=== PATIENT | female | born 1950 | race American Indian/Alaskan Native ===

== ENCOUNTER 2022-02-14 00:10 | Emergency (ER) | payer BC ==
[2022-02-14 01:50] LABS: Hyaline Casts,Urine 1 /LPF; Mucus,Urine FEW /HPF; RBC,Urine < 1.0 /HPF (0.0-6.0); WBC,Urine < 1.0 /HPF (0.0-6.0)
[2022-02-14 01:51] LABS: Color,Urine Yellow (Yellow)
--- NOTE | 2022-02-14 01:58 | Cat Scan Report ---
CT HEAD WITHOUT CONTRAST INDICATION / CLINICAL INFORMATION: fall 2 days ago, head trauma, c/o headache. TECHNIQUE: CT head was performed without administration of intravenous contrast. All CT scans at this location are performed using CT dose reduction for ALARA by means of automated exposure control. COMPARISON: None available. FINDINGS: CEREBRAL HEMISPHERES: There is no evidence of large territorial infarction or significant abnormality of ram-white matter differentiation. Ventricles within normal limits. No midline shift. Basal ciste rns patent. HEMORRHAGE: None. CEREBELLUM / BRAINSTEM: No significant abnormality. ORBITS: No significant abnormality. SOFT TISSUES: No significant abnormality. SKULL: No significant abnormality. PARANASAL SINUSES / MASTOID AIR CELLS: Normal as visualized. ADDITIONAL FINDINGS: None. IMPRESSION: 1. No acute intracranial abnormality. Signer Name: Troy Gibbs II, MD Signed: 02/14/2022 1:54 AM Workstation Name: [id number]
--- NOTE | 2022-02-14 02:03 | Cat Scan Report ---
CT CERVICAL SPINE WITHOUT CONTRAST INDICATION / CLINICAL INFORMATION: fall 2 days ago, head/posterior neck pain. TECHNIQUE: Axial CT images were obtained through the cervical spine. Sagittal and coronal reformatted images were produced. All CT scans at this location are performed using CT dose reduction for ALARA by means of automated exposure control. COMPARISON: None available. FINDINGS: MANDIBLE: No significant abnormality of the visualized mandible or TMJs. SKULL BASE: No significant abnormality of the skull base. CRANIOCERVICAL JUNCTION: No significant abnormality of the craniocervical junction. CERVICAL SPINE: Normal alignment. Moderate loss of intervertebral disc space throughout the cervical spine with fusion of C4-5. Partially calcified pannus posterior to the tip of the dens. No acute cerv ical spine fracture. SOFT TISSUES: No significant abnormality of soft tissues or musculature. THYROID: No significant abnormality. UPPER CHEST: No significant abnormality of the visualized chest. ADDITIONAL FINDINGS: None. IMPRESSION: 1. No evidence of acute osseous injury. Signer Name: Troy Gibbs II, MD Signed: 02/14/2022 1:59 AM Workstation Name: [id number]
--- NOTE | 2022-02-14 02:09 | Cat Scan Report ---
CT PELVIS WITHOUT CONTRAST INDICATION / CLINICAL INFORMATION: R hip pain; r/o fx. TECHNIQUE: Axial CT images were obtained through the pelvis without contrast. All CT scans at this [facility] are performed using CT dose reduction for ALARA by means of automated exposure control. COMPARISON: None available. FINDINGS: L4 vertebral body demonstrates moderate depression of superior endplate with fracture lines underlyin g the depressed superior endplate. Additional fracture versus pars defect involving left pedicle. Moderate loss of intervertebral disc space L4-5 vacuum disc phenomenon present. Osteonecrosis left femoral head. Articular surface remains smooth without evidence of collapse. IMPRESSION: 1. Depressed superior endplate fracture of L4 with obvious fracture lines suggesting possible acute t o subacute injury. No old studies are available for comparison. 2. Pars defect versus nondisplaced fracture left L4 vertebral body. 3. Osteonecrosis left femoral head without evidence of articular collapse. 4. No acute osseous injuries of the pelvis or bilateral femurs. Signer Name: Troy Gibbs II, MD Signed: 02/14/2022 2:05 AM Workstation Name: [id number]
--- NOTE | 2022-02-14 02:09 | XRay Report ---
CHEST 1 VIEW INDICATION / CLINICAL INFORMATION: sob. COMPARISON: None available. FINDINGS: SUPPORT DEVICES: None. HEART / MEDIASTINUM: Heart size is within normal limits. Mediastinal contour demonstrates no signific ant abnormality. LUNGS / PLEURA: Lungs are clear for degree of inspiration and technique utilized. BONES: Chronic fracture mid right clavicle. No acute osseous findings. Multilevel degenerative change s of the thoracic spine. ADDITIONAL FINDINGS: No significant additional findings. IMPRESSION: 1. No active cardiopulmonary disease. Signer Name: Troy Gibbs II, MD Signed: 02/14/2022 2:05 AM Workstation Name: [id number]
--- NOTE | 2022-02-14 02:10 | Emergency Department Report ---
HPI - General Chief Complaint: Fall PUI?: No Time Seen by Provider: 02/14/22 00:27 - HPI HPI: 71-year-old obese female with history of borderline diabetes, hypertension, brought in by family members for worsening confusion status post fall. Per the report the patient had an unwitnessed fall 2 days ago at which time she was help ed back into her bed by a neighbor. The patient subsequently refused to be brought to the emergency department. Family members report that the patient has been having frequent falls recently. Patient states she did hit the back of her head as well as her neck and hit her right hip, resulting in her inability to walk. She states she had a prior hip fracture but cannot recall on which side she had this. EMS states that the patient's right lower extremity was internally rotated, and then she was given fentanyl 100 mcg intravenous prior to arrival. Patient denies any breathing preceding symptoms prior to her falls. At baseline she is supposed to walk with a walker which she states that she intermittently uses. Pain currently 8 out of 10. ED Past Medical Hx - Past Medical History Previous Medical History?: Yes Hx Hypertension: Yes Hx Diabetes: Yes - Surgical History Past Surgical History?: Yes Additional Surgical History: left hip fracture - Social History Smoking Status: Never Smoker Substance Use Type: None - Medications Home Medications: Home Medications Medication Instructions Recorded Confirmed Last Taken Type Acetaminophen [Acetaminophen ER] 650 mg PO Q8H 7 Days #21 mg 02/14/22 Unknown Rx Lidocaine [Lidoderm] 1 each TP Q12H 7 Days #14 patch 02/14/22 Unknown Rx Ondansetron [Zofran Odt] 4 mg PO Q8HR 3 Days #12 tab.rapdis 02/14/22 Unknown Rx ED Review of Systems ROS: Stated complaint: HIP PAIN POSS BROKEN Other details as noted in HPI Comment: All other systems reviewed and negative Physical Exam - Physical Exam Vital Signs: Vital Signs 02/14/22 02/14/22 02/14/22 00:14 00:44 00:47 Temperature 98.9 F 97.9 F Pulse Rate 98 H 87 Respiratory 18 15 22 Rate Blood Pressure 135/62 Blood Pressure 141/70 [Right] O2 Sat by Pulse 99 90 90 Oximetry General: Gen: pt is well appearing, no acute distress, weak appearing, no acute distress HEENT: Normocephalic atraumatic pupils equally round and reactive to light extraocular muscles intact sclera anicteric Neck: Full range of motion, no midline spinal tenderness palpation, no JVD, no carotid bruits, no nuchal rigidity CVS: S1-S2 regular rate and rhythm with no gallops rubs or murmurs, chest wall nontender Pulmonary: Clear to auscultation bilaterally, no wheezes rales or rhonchi Abdomen: Soft nondistended nontender no guarding or rebound tenderness, no palpable deformities or step-offs, normal active bowel sounds, no hepatosplenomegaly, no pulsatile masses Back: Full range of motion, no midline spinal tenderness palpation, no palpable deformities or step-offs : Grossly unremarkable with respect to external exam, exercise instruct was patient's nurse,Yves Extremities: No cyanosis no clubbing no edema, intact distal peripheral pulses,, patient's right lower extremity is internally rotated, patient has significant p ain with palpation of her right hip and groin, unable to perform range of motion of right lower extremity secondary to pain in right hip, left lower extremity has mild reproducible pain in the hip but this has full range of motion, Integumentary: Skin normal, no petechia no purpura no abscess no lacerations no evidence of trauma no evidence of infection Neuro: Patient is awake alert and oriented to person place time situation, mentating well, cranial nerves II through XII intact, no focal neurodeficits, sensation grossly intact, unable to test gait at this time secondary to the patient's clinical condition Psych: Calm cooperative, mood affect normal ED Course Vital Signs 02/14/22 02/14/22 02/14/22 00:14 00:44 00:47 Temperature 98.9 F 97.9 F Pulse Rate 98 H 87 Respiratory 18 15 22 Rate Blood Pressure 135/62 Blood Pressure 141/70 [Right] O2 Sat by Pulse 99 90 90 Oximetry - Consultations Consultation #1: 02/14/22 03:11 Case and labs reviewed, in person, with Dr. Childers, admitting uke driver. Per his verbal report, the pt does not meet criteria for inpatient admission. Consultation #2: 02/14/22 03:18 Pt's daughter and son informed by me of all results, including L4 fx as well as the remaining diagnostic imaging and lab results. I advised them that the patient be kept in the emergency department for evaluation by case management to make sure she can safely be discharged to home given their report that she has been having frequent falls. I informed them that I reviewed the case directly with , and that he reviewed the case and states that the patient does not meet criteria for inpatient admission at this time. However the patient's daughter states he states they do not want the pt to remain in the ER for case management consultation and they want to take her home. 02/14/22 04:09 ED Medical Decision Making - Lab Data Result diagrams: 02/14/22 01:56 02/14/22 01:56 - EKG Data -: EKG Interpreted by Me EKG shows normal: sinus rhythm Rate: normal - EKG Data When compared to previous EKG there are: no significant change, previous EKG unavailable - Radiology Data Radiology results: report reviewed - Medical Decision Making 71-year-old morbidly obese female with history of hypertension, borderline diabetes, brought in by her family for evaluation of right hip pain and frequent falls. Vital signs stable. Serum labs reviewed. Patient has mild elevation in BUN to creatinine ratio for which she was given normal saline. Remainder of labs grossly unremarkable. Diagnostic imaging results reviewed and discussed at length with the patient and her family. Per discussion with admitting hospitalist, , patient does not meet criteria for inpatient admission at this time. I advised that the patient be kept in the ER for evaluation by c ase management to ascertain that she is stable for discharge back to home in the setting of the family reporting that the patient has unsteady gait. However her children are present and they declined to have the patient await evaluation by case management, stating they want her to be sent home with them. They have been advised to have the patient seen by her primary care doctor soon as possible and for the primary care doctor to be asked to place an evaluation by physical therapy as an outpatient. No further emergent work-up warranted at this time. Prior to discharge they were given strict verbal and written return precautions. They verbalized understanding and agreement the plan of care. Critical Care Time: No Critical care attestation.: If time is entered above; I have spent that time in minutes in the direct care of this critically ill patient, excluding procedure time. ED Disposition Clinical Impression: Altered mental status, Acute right hip pain, L4 vertebral fracture Disposition: 01 HOME / SELF CARE / HOMELESS Is pt being admited?: No Does the pt Need Aspirin: No Condition: Stable Instructions: Lumbar Spine Fracture, Musculoskeletal Pain Additional Instructions: Your cat scan shows that you have a fracture (broken bone) of your lumbar spine, at spine number L4. At this time, the treatment for this is pain control. There are no surgeries indicated at this time. However, please follow-up with your primary care doctor to obtain outpatient referral to orthopedic surgery. If your insurance allows you to refer yourself, please call Dr. Yoo, our orthopedic surgeon here at [facility], to schedule an outpatient follow-up appointment for soon as possible. Please also speak to your doctor concerning obtaining a referral for physical therapy. You will likely need help with walking and may need undergo further evaluation for your unsteady gait. Always use your walker, to help you ambulate and reduce your risks of falls. Take ibuprofen as needed for pain. You may take acetaminophen for additional pain management. You may also apply Lidoderm patches to your back or hip for additional pain management. Return to the nearest emergency department as soon as possible if you develop persistent or worsening falls, vomiting, dizziness, chest pain, shortness of breath, weakness, or if any other new worrisome symptoms develop Prescriptions: Acetaminophen [Acetaminophen ER] 650 mg PO Q8H 7 Days #21 mg Lidocaine [Lidoderm] 1 each TP Q12H 7 Days #14 patch Ondansetron [Zofran Odt] 4 mg PO Q8HR 3 Days #12 tab.rapdis Referrals: GE DIALLO MD [Primary Care Provider] - 3-5 Days MARICRUZ YOO MD [Staff Physician] - 24 Hours
--- NOTE | 2022-02-14 02:11 | XRay Report ---
RIGHT HIP 3 VIEW(S) INDICATION / CLINICAL INFORMATION: R hip pain; s/p fall 2 days ago; r/o fx COMPARISON: CT pelvis same date FINDINGS: Superior endplate fracture L4 better demonstrated on CT. No acute fractures involving pelvis or proxi mal femurs. Osteonecrosis left femoral head better visualized on CT. IMPRESSION: 1. No interval acute findings. Signer Name: Troy Gibbs II, MD Signed: 02/14/2022 2:06 AM Workstation Name: [id number]
[2022-02-14 02:24] LABS: Basophils % (Auto) 0.4 % (0.0-1.8); Eosinophils % (Auto) 0.4 % (0.0-4.3); Hematocrit 34.5 % (30.3-42.9); Hemoglobin 11.4 gm/dl (10.1-14.3); Lymphocytes % (Auto) 14.7 % (13.4-35.0); Mean Corpuscular HGB Conc 33 % (30-34); Mean Corpuscular Volume 89 fl (79-97); Monocytes # (Auto) 0.6 K/mm3 (0.0-0.8); Monocytes % (Auto) 8.1 % (0.0-7.3); Platelet Count 341 K/mm3 (140-440); Red Blood Count 3.88 M/mm3 (3.65-5.03); Red Cell Distribution Width 15.4 % (13.2-15.2)
[2022-02-14 02:31] LABS: Calcium 10.1 mg/dL (8.4-10.2)
[2022-02-14] MEDS ORDERED: MORPHINE 4 MG/1 ML INJ IV ONE (03:19)
[2022-02-14] MEDS ORDERED: KETOROLAC 30 MG/1 ML INJ IV ONE (03:19)
[2022-02-14] MEDS ORDERED: SODIUM CHLORIDE 0.9% 1000 ML 1,000 ML IV ONE (03:19)
[2022-02-14] MEDS ORDERED: ONDANSETRON 4 MG/2 ML INJ IV ONE (03:19)
[2022-02-14 04:55] VITALS: BP 109/53
--- NOTE | 2022-02-14 13:25 | Electrocardiograph Report ---
[facility] Test Date: 2022-02-14 Test Time: 02:15:49 Pat Name: MARIE RAGSDALE Department: Room: Gender: F Clinical Training Specialist: BYRON : 1950 Requested By: IFTIKHAR ROMANO Order Number: [id number] Reading MD: Addy Clark Measurements Intervals [place] Rate: 100 P: 62 MS: 152 QRS: 45 QRSD: 90 T: 16 QT: 334 QTc: 431 Interpretive Statements Sinus tachycardia Probable left atrial enlargement Low voltage, precordial leads No previous ECG available for comparison Electronically Signed On 02-14-2022 13:24:40 EDT by Addy Clark
== END 2022-02-14 05:28 | disposition home or self-care (01) ==
LOC: ED 00:10
DX: S32.049A Unspecified fracture of fourth lumbar vertebra, initial encounter for closed fracture (principal); R41.82 Altered mental status, unspecified; M25.551 Pain in right hip; I10 Essential (primary) hypertension; E11.9 Type 2 diabetes mellitus without complications; W19.XXXA Unspecified fall, initial encounter; Y93.89 Activity, other specified; Y92.89 Other specified places as the place of occurrence of the external cause; Y99.8 Other external cause status
CPT/HCPCS: 36415; 70450; 71045; 72125; 72192; 73502; 80048; 81001; 82140; 83880; 85025; 93005; 96361; 96374; 96375; 99285; J1885; J2270; J2405; J7030